=== PATIENT | male | born 1960 | race Caucasian/White ===

== ENCOUNTER 2018-03-31 01:59 | Inpatient (IN) | payer OTHER ==
[~2018-03-31] VITALS: Ht 172.7 cm; Wt 70.0 kg
[2018-03-31] MEDS ORDERED: ondansetron/PF 4mg/2ml inj IV ONE (02:25)
[2018-03-31] MEDS ORDERED: morphine 4 MG/ML inj SYRINge IV ONE ×3 (02:25→04:45)
[2018-03-31] MEDS ORDERED: iohexol 300mg/ml 100ml inj. ONE (02:28)
[2018-03-31 02:45] LABS: PARTIAL THROMBOPLASTIN TIME 24 SECONDS (22-32); PROTHROMBIN TIME 10.6 SECONDS (9.0-12.0)
[2018-03-31 02:46] LABS: ALANINE AMINOTRANSFERASE 47 U/L (12-78); ALBUMIN 3.9 G/DL (3.4-5.0); ALKALINE PHOSPHATASE 69 IU/L (46-116); ANION GAP 12 (8-16); ASPARTATE AMINO TRANSFERASE 52 U/L (10-37); BILIRUBIN,TOTAL 0.3 MG/DL (0.1-1.0); BLOOD UREA NITROGEN 21 MG/DL (7-18); BUN/CREATININE RATIO 18.6 (5.4-32.0); CALCIUM 8.7 MG/DL (8.5-10.1); CHLORIDE 103 MMOL/L (99-107); CREATININE 1.13 MG/DL (0.60-1.10); ETHANOL 0.149 GM/DL (0.0-0.010); GLUCOSE 160 MG/DL (70-104); LIPASE 278 U/L (73-393); SODIUM 141 MMOL/L (135-145); TOTAL CARBON DIOXIDE 26.5 MMOL/L (24-32); TOTAL PROTEIN 7.7 G/DL (6.4-8.2); TROPONIN I < 0.04 NG/ML (0.0-0.05); eGFR 66 ML/MIN
[2018-03-31 02:49] LABS: BASOPHILS # (AUTO) 0.1 X10'3 (0-0.2); BASOPHILS % (AUTO) 0.5 % (0-1); EOSINOPHILS # (AUTO) 0.2 X10'3 (0-0.9); EOSINOPHILS % (AUTO) 1.3 % (0-6); HEMATOCRIT 44.7 % (42.0-52.0); HEMOGLOBIN 14.9 g/dl (14.0-17.9); LYMPHOCYTES # (AUTO) 3.8 X10'3 (1.1-4.8); LYMPHOCYTES % (AUTO) 29.9 % (21-51); MEAN CORPUSCULAR HGB CONC 33.4 % (33.0-36.5); MEAN CORPUSCULAR VOLUME 92.9 FL (78-98); MEAN PLATELET VOLUME 8.3 FL (7.4-10.4); MONOCYTES # (AUTO) 0.7 X10'3 (0-0.9); MONOCYTES % (AUTO) 5.8 % (2-12); NEUTROPHILS % (AUTO) 62.5 % (42-75); PLATELET COUNT 322 X10'3 (140-440); RED BLOOD COUNT 4.81 X10'6 (4.70-6.10); RED CELL DISTRIBUTION WIDTH 12.4 % (11.5-14.5); WHITE BLOOD COUNT 12.8 X10'3 (4.5-11.0)
[2018-03-31 02:55] LABS: POTASSIUM 2.9 MMOL/L (3.5-5.1)
[2018-03-31] MEDS ORDERED: potassium Cl 10 mEq/100mL bag IV ONE (03:20)
[2018-03-31] MEDS ORDERED: potassium 10mEq/100ml NS w/LIDOcaine (10mg/bag) IV ONE (03:25)
[2018-03-31] MEDS ORDERED: dextrose 5%-1/2 normal saline 1,000 ML IV SCH (04:09)
[2018-03-31] MEDS ORDERED: naloxone 0.4 mg/ml inj IV PRN (04:10)
[2018-03-31] MEDS ORDERED: acetaminophen 325mg tablet PO PRN (04:10)
[2018-03-31] MEDS ORDERED: ondansetron/PF 4mg/2ml inj IV PRN (04:10)
[2018-03-31] MEDS ORDERED: mag hydrox/Alum hydrox/simeth 30ml oral suspension PO PRN (04:10)
[2018-03-31] MEDS ORDERED: magnesium hydroxide 30ml (MOM) UD suspension PO PRN (04:10)
[2018-03-31] MEDS ORDERED: CADD PCA waste documentation MC PRN (04:10)
[2018-03-31] MEDS ORDERED: LIDOcaine 1% 30ml preserv. free vial IJ ONE (04:15)
[2018-03-31] MEDS ORDERED: ketamine 10mg/ml 20ml inj IV ONE (04:55)
[2018-03-31] MEDS: HYDROmorphone/NS 1 mg/ml CADD 50 ML IV SCH ×10 (05:05→23:00)
[2018-03-31] MEDS ORDERED: NO HOME MEDS (05:56)
[2018-03-31 06:00] VITALS: BP 121/80
[2018-03-31] MEDS: K and/or MAG REPLACEMENT MC SCH (08:00)
[2018-03-31] MEDS ORDERED: potassium Cl 20 mEq SR tablet PO PRN ×2 (08:05)
[2018-03-31] MEDS ORDERED: potassium Cl 40MEQ/NS 500ml 500 ML IV PRN (08:05)
[2018-03-31 11:00] VITALS: BP 140/86
[2018-03-31] MEDS: ALPRAZolam 0.25mg tablet PO PRN (11:09)
[2018-03-31] MEDS: ketorolac trometh. 30mg/ml inj. IV SCH ×3 (11:47→20:40)
[2018-03-31] MEDS ORDERED: ketorolac trometh. 30mg/ml inj. IV SCH (14:00)
[2018-03-31 16:40] VITALS: BP 152/94
[2018-03-31] MEDS: potassium Cl 40MEQ/NS 500ml 500 ML IV PRN ×2 (16:46→21:35)
[2018-03-31 19:00] VITALS: BP 138/88
[2018-03-31] MEDS: normal saline 500ml IV soln 1,000 ML IV SCH (20:05)
[2018-03-31] MEDS ORDERED: albuterol 2.5 MG/3 ML nebule NEB PRN (20:05)
[2018-03-31] MEDS: ondansetron/PF 4mg/2ml inj IV PRN (20:37)
[2018-04-01] VITALS: BP 105/66
[2018-04-01] MEDS: HYDROmorphone/NS 1 mg/ml CADD 50 ML IV SCH ×12 (01:00→22:36)
[2018-04-01] MEDS: ketorolac trometh. 30mg/ml inj. IV SCH ×4 (01:47→19:45)
[2018-04-01] MEDS: K and/or MAG REPLACEMENT MC SCH (06:30)
[2018-04-01 08:01] VITALS: BP 108/84
[2018-04-01 11:23] VITALS: BP 138/83
[2018-04-01 19:35] VITALS: BP 127/76
[2018-04-02] VITALS: BP 121/79
[2018-04-02] MEDS: HYDROmorphone/NS 1 mg/ml CADD 50 ML IV SCH ×12 (01:00→23:00)
[2018-04-02] MEDS: ketorolac trometh. 30mg/ml inj. IV SCH ×4 (02:25→19:34)
[2018-04-02] MEDS: normal saline 500ml IV soln 1,000 ML IV SCH (02:30)
[2018-04-02 07:00] VITALS: BP 126/82
[2018-04-02] MEDS: K and/or MAG REPLACEMENT MC SCH (08:00)
[2018-04-02 11:00] VITALS: BP 143/81
[2018-04-02 20:00] VITALS: BP 165/86
[2018-04-03] VITALS: BP 146/97
[2018-04-03] MEDS: HYDROmorphone/NS 1 mg/ml CADD 50 ML IV SCH ×6 (01:00→11:00)
[2018-04-03] MEDS: ketorolac trometh. 30mg/ml inj. IV SCH ×3 (02:08→15:51)
[2018-04-03 07:31] VITALS: BP 166/92
[2018-04-03] MEDS: K and/or MAG REPLACEMENT MC SCH (08:00)
[2018-04-03 11:00] VITALS: BP 142/85
[2018-04-03] MEDS: oxyCODONE/APAP 10/325mg tablet PO PRN ×3 (12:24→22:36)
[2018-04-03] MEDS: ALPRAZolam 0.25mg tablet PO PRN (12:36)
[2018-04-03] MEDS ORDERED: ketorolac trometh. 30mg/ml inj. IV PRN (18:55)
[2018-04-03 20:00] VITALS: BP 150/87
[2018-04-04] VITALS: BP 143/82
[2018-04-04] MEDS: ALPRAZolam 0.25mg tablet PO PRN (00:59)
[2018-04-04] MEDS: oxyCODONE/APAP 10/325mg tablet PO PRN ×5 (03:00→20:43)
[2018-04-04 06:45] VITALS: BP 123/81
[2018-04-04 07:00] VITALS: BP 123/81
[2018-04-04] MEDS: K and/or MAG REPLACEMENT MC SCH (07:00)
[2018-04-04] MEDS: ibuprofen 200mg tablet PO SCH ×2 (10:27→17:00)
[2018-04-04] MEDS: docusate sod 100mg capsule PO SCH ×2 (10:27→19:40)
[2018-04-04 11:00] VITALS: BP 128/81
[2018-04-04] MEDS: ondansetron/PF 4mg/2ml inj IV PRN ×2 (12:14→20:42)
[2018-04-04 20:00] VITALS: BP 141/93
[2018-04-05] VITALS: BP 143/89
[2018-04-05] MEDS: ibuprofen 200mg tablet PO SCH ×3 (00:55→16:24)
[2018-04-05] MEDS: oxyCODONE/APAP 10/325mg tablet PO PRN ×3 (05:33→19:36)
[2018-04-05 07:12] VITALS: BP 131/84
[2018-04-05] MEDS: docusate sod 100mg capsule PO SCH ×2 (07:32→19:34)
[2018-04-05] MEDS: K and/or MAG REPLACEMENT MC SCH (08:00)
[2018-04-05 12:15] VITALS: BP 141/80
[2018-04-05] MEDS: ondansetron/PF 4mg/2ml inj IV PRN (13:11)
[2018-04-05 20:00] VITALS: BP 145/79
[2018-04-06] VITALS: BP 165/97
[2018-04-06] MEDS: oxyCODONE/APAP 10/325mg tablet PO PRN ×5 (00:12→19:47)
[2018-04-06] MEDS: ibuprofen 200mg tablet PO SCH ×3 (00:14→16:18)
[2018-04-06] MEDS: ondansetron/PF 4mg/2ml inj IV PRN (06:48)
[2018-04-06 08:00] VITALS: BP 143/92
[2018-04-06] MEDS: docusate sod 100mg capsule PO SCH ×2 (08:01→19:13)
[2018-04-06] MEDS ORDERED: magnesium hydroxide 30ml (MOM) UD suspension PO PRN (10:10)
[2018-04-06 12:02] VITALS: BP 152/83
[2018-04-06] MEDS: magnesium hydroxide 30ml (MOM) UD suspension PO SCH (19:13)
[2018-04-06 21:11] VITALS: BP 146/78
[2018-04-07] VITALS: BP 130/83
[2018-04-07] MEDS: ibuprofen 200mg tablet PO SCH ×5 (00:07→23:22)
[2018-04-07] MEDS: oxyCODONE/APAP 10/325mg tablet PO PRN ×2 (02:06→10:17)
[2018-04-07] MEDS: ondansetron/PF 4mg/2ml inj IV PRN ×2 (02:10→07:58)
[2018-04-07 07:00] VITALS: BP 115/80
[2018-04-07] MEDS: docusate sod 100mg capsule PO SCH ×3 (07:49→19:47)
[2018-04-07] MEDS: magnesium hydroxide 30ml (MOM) UD suspension PO SCH ×3 (07:49→11:07)
[2018-04-07 11:00] VITALS: BP 132/82
[2018-04-07] MEDS ORDERED: oxyCODONE SR 10mg (sust. release) tab PO ONE (12:10)
[2018-04-07] MEDS: LIDOcaine 5% patch TP SCH (15:49)
[2018-04-07 18:00] VITALS: BP 134/81
[2018-04-07] MEDS: oxyCODONE SR 10mg (sust. release) tab PO SCH (19:47)
[2018-04-08] VITALS: BP 142/85
[2018-04-08 07:07] VITALS: BP 116/67
[2018-04-08] MEDS: magnesium hydroxide 30ml (MOM) UD suspension PO SCH (08:11)
[2018-04-08] MEDS: ibuprofen 200mg tablet PO SCH ×2 (08:11→16:03)
[2018-04-08] MEDS: docusate sod 100mg capsule PO SCH (08:11)
[2018-04-08] MEDS: oxyCODONE SR 10mg (sust. release) tab PO SCH (08:11)
[2018-04-08] MEDS: LIDOcaine 5% patch TP SCH (08:12)
[2018-04-08 11:00] VITALS: BP 129/75
[2018-04-08] MEDS ORDERED: bisacodyl 10mg suppository rectal RC STA (12:42)
[2018-04-08] MEDS: oxyCODONE/APAP 10/325mg tablet PO PRN (14:46)
[2018-04-08] MEDS ORDERED: LIDO700A47 TP (17:27)
[2018-04-08] MEDS ORDERED: PER10325T PO (17:27)
[2018-04-08] MEDS ORDERED: OXYC10TA57 PO (17:27)
[2018-04-08] MEDS ORDERED: IBUP-2264 PO (17:27)
== END 2018-04-08 17:50 | disposition home or self-care (01) | DRG 183 ==
LOC: ER 02:00 → ED HOLD 04:09 → PCU 3S 06:30 → SUR 3N 16:03
PROVIDERS: ADMIT Surgery; ATTEND Surgery
PROC: 0W9B30Z Drainage of Left Pleural Cavity with Drainage Device, Percutaneous Approach (ICD-10-PCS; principal; 2018-03-31)
PROC: BW251ZZ Computerized Tomography (CT Scan) of Chest, Abdomen and Pelvis using Low Osmolar Contrast (ICD-10-PCS; 2018-03-31)
DX: S22.42XA Multiple fractures of ribs, left side, initial encounter for closed fracture (principal); S27.2XXA Traumatic hemopneumothorax, initial encounter; E87.6 Hypokalemia; S42.025A Nondisplaced fracture of shaft of left clavicle, initial encounter for closed fracture; F10.129 Alcohol abuse with intoxication, unspecified; V29.9XXA Motorcycle rider (driver) (passenger) injured in unspecified traffic accident, initial encounter; Y93.55 Activity, bike riding; Y92.89 Other specified places as the place of occurrence of the external cause; Y99.8 Other external cause status
CPT/HCPCS: 32551; 36415; 70450; 71045; 71046; 71260; 72125; 73020; 74177; 80053; 80320; 83690; 84132; 84484; 85025; 85610; 85730; 86885; 86900; 86901; 87070; 94760; 96365; 96375; 96376; 99291; G0378; J1170; J1885; J2270; J2405; J3480; J3490; J7030; Q9967